=== PATIENT | male | born 1980 | race Caucasian/White ===

== ENCOUNTER 2019-05-07 16:29 | Emergency (ER) | payer OTHER ==
[2019-05-07] MEDS ORDERED: KETOROLAC TROMETHAMINE 30MG/ML ONE (17:02)
== END 2019-05-07 17:31 | disposition home or self-care (01) ==
LOC: EDH 16:29
DX: S89.91XA Unspecified injury of right lower leg, initial encounter (principal); M25.561 Pain in right knee; Z90.49 Acquired absence of other specified parts of digestive tract; X58.XXXA Exposure to other specified factors, initial encounter; Y93.89 Activity, other specified; Y92.89 Other specified places as the place of occurrence of the external cause; Y99.8 Other external cause status
CPT/HCPCS: 29505; 73562; 96372; 99284; J1885